=== PATIENT | female | born 1985 | race Caucasian/White ===

== ENCOUNTER → 2018-09-01 | Outpatient (CLI) | payer OTHER ==
--- NOTE | 2018-09-01 16:53 | RAD ---
Indication: Cyst of the ovary TECHNIQUE: Grayscale, color Doppler and spectral waveform is of the pelvis COMPARISON: None FINDINGS: The uterus is anteverted and measures 7.4 x 3.1 x 5.4 cm (longitudinal, AP, transverse). Endometrial stripe measures 2 mm in thickness and is within normal limits. The right ovary measures 3.0 x 2.2 x 1.7 cm and demonstrates evidence of blood flow. The left ovary measures 3.3 x 2.7 x 1.6 cm and shows blood flow. Cervix within normal limits. There is a 3.7 x 1.9 x 1.4 cm anechoic lesion posterior to the fundus of the uterus without internal vascularity. No free pelvic fluid. IMPRESSION: 1. Bilateral ovaries demonstrate evidence of blood flow 2. Cystic lesion posterior to the uterine fundus likely parapelvic cyst. Follow-up ultrasound in 8-12 weeks recommended. Electronically signed by: Nav Beck DO (09/01/2018 4:50 PM) [id number]
== END | disposition home or self-care (01) ==
LOC: US 13:30
PROVIDERS: ATTEND Obstetrics & Gynecology
DX: Z01.411 Encounter for gynecological examination (general) (routine) with abnormal findings (principal); N83.209 Unspecified ovarian cyst, unspecified side
CPT/HCPCS: 76830; 76856

== ENCOUNTER → 2018-10-26 | Outpatient (CLI) | payer OTHER ==
[~2018-10-26] MED LIST: DOCU-109 PO; GABA300C18 PO; IBUP-1027 PO
--- NOTE | 2018-10-26 12:51 | RAD ---
Pelvic and transvaginal ultrasound History: Left ovarian cyst Comparison: September 01, 2018 Findings: Multiple transabdominal sonographic images of the pelvis are submitted. Left ovary measures 2.7 x 1 x 2 cm. Right ovary is not well-visualized. Transvaginal ultrasound: Multiple transvaginal sonographic images of the pelvis are submitted. Uterus measured 8.4 x 4.1 x 5.1 cm. Endometrium is thin about 0.2 cm. Left ovary measured 3.4 x 1.7 x 2.5 cm. Previously seen cyst near the uterine fundus is not demonstrated. However there is a more solid-appearing focus of echogenicity of the left ovary about 2.1 x 2.2 x 1.5 cm with some internal vascularity on color Doppler imaging. There is normal low resistance vascularity of the left ovary. Right ovary measured 2.8 x 2.2 x 1.7 cm with normal low resistance vascularity, a few follicles present. No free fluid is demonstrated. Impression: 1. Not well-demonstrated on previous exam, there is more solid-appearing mass of the left ovary with internal vascularity on color Doppler imaging. Previously seen cystic focus near the uterine fundus is not demonstrated on this exam, no free fluid demonstrated. Electronically signed by: Jose Maria Weber MD (10/26/2018 12:47 PM) [id number]
== END | disposition home or self-care (01) ==
LOC: US 10:35
PROVIDERS: ATTEND Obstetrics & Gynecology
DX: N83.202 Unspecified ovarian cyst, left side (principal); N94.89 Other specified conditions associated with female genital organs and menstrual cycle
CPT/HCPCS: 76830; 76856

== ENCOUNTER 2019-01-04 07:59 | Inpatient (IN) | payer OTHER ==
[~2019-01-04] VITALS: Ht 149.9 cm; Wt 46.3 kg
[2019-01-04] VITALS (7 sets, daily range): BP systolic 94–106; BP diastolic 58–74
[~2019-01-04 07:59] MED LIST changes: -DOCU-109 PO; -GABA300C18 PO; +HYDROmorphone 2 MG/ML VIAL IV PRN; -IBUP-1027 PO; +IV RINGERS,LACTATED 1000ML 1,000 ML IV SCH; +MORPHINE SULFATE 2 MG/ML VIAL. IV PRN; +ONDANSETRON PF 4 MG/2 ML VIAL. IV PRN; +PROCHLORPERAZINE 10 MG/2 ML VIAL. IV PRN; +fentaNYL PF VIAL 100 MCG/2 ML VIAL IV PRN
[2019-01-04 08:20] LABS: U PREG PATIENT NEGATIVE (NEG)
[2019-01-04] MEDS ORDERED: SURGICEL HEMOSTAT 4X8 EACH. ONE (09:49)
[2019-01-04] MEDS ORDERED: BUPIVACAINE-EPI 0.25%-1:200000 MPF 30 ML VIAL. ONE (09:49)
[2019-01-04] MEDS ORDERED: ceFAZolin 2GM PREMIX 2 GM/50 ML BAG IV ONE (10:00)
[2019-01-04] MEDS ORDERED: fentaNYL PF VIAL 250 MCG/5 ML VIAL ONE (10:16)
[2019-01-04] MEDS ORDERED: MIDAZOLAM HCL/PF 2 MG/2 ML VIAL. ONE (10:21)
[2019-01-04] MEDS ORDERED: ROCURONIUM 50 MG/5 ML VIAL. ONE (10:21)
[2019-01-04] MEDS ORDERED: PROPOFOL 20 ML IV ONE (10:22)
[2019-01-04] MEDS ORDERED: LIDOCAINE 2% PF 5 ML VIAL. ONE (10:22)
[2019-01-04] MEDS ORDERED: DEXAMETHASONE SOD PHOS 20 MG/5 ML VIAL. ONE (10:22)
[2019-01-04] MEDS ORDERED: ONDANSETRON PF 4 MG/2 ML VIAL. ONE (10:22)
[2019-01-04] MEDS ORDERED: SEVOFLURANE 61 TO 120 MINUTES. IH ONE (10:22)
[2019-01-04] MEDS ORDERED: GLYCOPYRROLATE 1 MG/5 ML VIAL. ONE ×2 (10:31→13:01)
[2019-01-04] MEDS ORDERED: NEOSTIGMINE METHYLSULFATE 5 MG/5 ML SYRINGE. ONE ×2 (10:31→13:01)
--- NOTE | 2019-01-04 13:07 | PDOC4 ---
Operative Note Operative Note Operative Note: Preoperative Diagnosis: Intraoperative bowel injury, transverse colon Postoperative Diagnosis: Same Procedure: Repair of injury to transverse colon Surgeon: Edy Anesthesia: Gen EBL: Min Specimen: None Drains: None Complications: None Indication: The patient is a 33-year-old female who was undergoing a laparoscopic procedure by Dr. Rdz. Intraoperative general surgery consultation was requested out of concern regarding a trocar injury to the bowel. Description: Upon my entry the patient was under general anesthesia and in lithotomy. Dr. Rdz was present and the patient had a minilaparotomy located in the lower abdomen. Through the incision Dr. Rdz had isolated an area of the transverse colon that was a suspected site of injury. Per Dr Rdz's report there was a suspected injury with a laparoscopic trocar during which enteric contents were visualized consistent with colon. He did not believe that there was a through and through injury. Initial inspection of the transverse colon showed a small area of serosal disruption in the midportion. This did seem consistent with an injury from a 5 mm trocar, and there did not appear to be any significant contamination or soilage. I inspected the remainder of the transverse colon as far as could be visualized through the incision. There were no other areas of injury or abnormalities. We dissected some of the omentum off the area in question to inspect clearly around the bowel. Again there was no suggestion of the through and through injury. The suspected injury site was repaired with placement of 3-0 Vicryl sutures in the seromuscular layer. The bowel was then reduced back into the abdominal cavity. Dr. Rdz then closed the abdomen and concluded the case. SHREYAS WILSON MD Jan 04, 2019 13:07
--- NOTE | 2019-01-04 13:09 | PDOC ---
BRIEF OPERATIVE NOTE Date: Jan 04, 2019 Pre-Op Diagnosis MEHUL Cyst Post-Op Diagnosis Same Procedure Performed 1. Open LSO 2. Enterotomy Repair Surgeon Dr. Kendell Snow for enterotomy repair [employer] Supervisor Precious Anesthesia Type: General Blood Loss 100 ml Specimens Obtained Left fallopian tube and MEHUL Findings MEHUL cyst and incidental enterotomy Complications enterotomy Operative Note see dictation NATALIE COLEMAN Jr, MD Jan 04, 2019 13:09
[2019-01-04] MEDS ORDERED: PROCHLORPERAZINE 10 MG/2 ML VIAL. IV PRN (13:15)
[2019-01-04] MEDS ORDERED: DEXTROSE 50% 25 GM / 50ML DISP.SYRIN. IV PRN (13:15)
[2019-01-04] MEDS ORDERED: CALCIUM CARBONATE 500 MG TAB.CHEW PO PRN (13:15)
[2019-01-04] MEDS ORDERED: ONDANSETRON PF 4 MG/2 ML VIAL. IV PRN (13:15)
[2019-01-04] MEDS ORDERED: KETOROLAC 30 MG/ML VIAL. IV PRN (13:15)
[2019-01-04] MEDS ORDERED: diphenhydrAMINE HCL 25 MG CAPSULE PO PRN (13:15)
[2019-01-04] MEDS ORDERED: ZOLPIDEM 5 MG TABLET. PO PRN (13:15)
[2019-01-04] MEDS ORDERED: 0.9 % SODIUM CHLORIDE 10 ML DISP.SYRIN. IV PRN (13:15)
[2019-01-04] MEDS ORDERED: oxyCODONE/APAP 5/325 1 TAB TABLET PO PRN (13:15)
[2019-01-04] MEDS ORDERED: diphenhydrAMINE 50 MG/ML VIAL IV PRN (13:15)
[2019-01-04] MEDS ORDERED: SEVOFLURANE > 120 MINUTES. IH ONE (13:30)
--- NOTE | 2019-01-04 13:31 | OP ---
DATE OF SURGERY: 01/04/2019 PREOPERATIVE DIAGNOSIS: Left ovarian cyst. POSTOPERATIVE DIAGNOSIS: Left ovarian cyst. PROCEDURE: 1. Open LSO. 2. Enterotomy repair. SURGEON: Natalie Rdz MD. SECOND SURGEON: Dr. Snow for enterotomy repair. CLERK TELEVISION PRODUCTION: Precious. ANESTHESIA: GETA. ESTIMATED BLOOD LOSS: 100 mL. COMPLICATIONS: Enterotomy. FINDINGS: Left ovarian cyst and incidental enterotomy. SUMMARY: A 33-year-old female with chronic left ovarian cyst that showed solid and fluid components. The patient was counseled on laparoscopic LSO. Risks, benefits and expectations and voiced clear understanding to proceed. DESCRIPTION OF PROCEDURE: The patient was taken to surgery suite, placed in dorsal lithotomy position. She was prepped with Betadine solution for vaginal prep and ChloraPrep for abdominal prep. After adequate anesthesia, bivalve speculum was placed vaginally. Anterior lip of the cervix was grasped with single tooth tenaculum. The uterine acorn manipulator was then placed. The bivalve speculum was removed. Attention was now placed on abdomen. Small transverse skin incision was made with scalpel just below the umbilicus. The Veress needle was then placed through the infraumbilical incision site. The abdomen was insufflated up to 1 liter of CO2 gas. Veress needle was then removed. A 5-mm trocar was placed. Scope was positioned. It was found to be in the colon in which there was solid stool visualized. We then proceeded for open procedure. The trocar was removed. A low transverse Pfannenstiel skin incision was made with scalpel down to and through the fascia. The fascia was extended laterally using curved Andrews scissors. The superior edge of the fascia was grasped with 2 Mai clamps, dissected free of the abdominal rectus muscles using blunt dissection along with Bovie cautery. Same process took place inferiorly. The abdominal rectus muscles were dissected bluntly at the midline. Peritoneum was grasped with 2 hemostats and entered sharply with Metzenbaum scissors. This incision was extended superiorly. The bowel was then ran and we visualized the incidental enterotomy and marked it with a 2-0 Vicryl suture. The Tenzin ring retractor was placed. The uterus was then manipulated to visualize the right fallopian tube and ovary that was normal, left fallopian tube and ovary that was visualized. A curved Chloé clamp was placed over the left infundibulopelvic ligament, which was clamped, cut, and suture ligated. The left utero-ovarian pedicle was clamped with curved Chloé clamp, cut, and suture ligated. The area was hemostatic. The uterus was then returned to the abdomen. Dr. Snow was called for evaluation and repair of the enterotomy. Once he arrived, the bowel was visualized and appeared to be at the site of the marking in which he repaired the enterotomy with interrupted 3-0 Vicryl sutures. The bowel was then returned to the abdomen. The Tenzin ring retractor was removed. The peritoneum was reapproximated using 1-0 Vicryl suture in running fashion. The fascia was then reapproximated using 0 Vicryl suture in running fashion. Skin was reapproximated using 4-0 Vicryl suture in subcuticular manner. The infraumbilical incision site was closed with 4-0 Vicryl suture in a subcuticular manner. The uterine acorn manipulator and single tooth tenaculum were removed. The patient tolerated the procedure well and was sent to recovery room in stable condition. Sponge and needle count correct x 3. Please see Dr. Snow's dictation for the enterotomy repair. NATALIE RDZ MD DR: DANETTE/carlos JOB#: [id number] / [id number]
[2019-01-04] MEDS: fentaNYL PF VIAL 100 MCG/2 ML VIAL IV PRN ×3 (13:52→15:08)
[2019-01-04] MEDS ORDERED: fentaNYL PF VIAL 100 MCG/2 ML VIAL ONE (13:54)
[2019-01-04] MEDS: GABAPENTIN 300 MG CAPSULE. PO SCH ×2 (14:00→22:00)
[2019-01-05 05:40] VITALS: BP 99/68
[2019-01-05 06:11] LABS: BASO % 0 % (0-3); EOS % 0 % (0-3); HEMATOCRIT 34.6 % (36.0-47.0); HEMOGLOBIN 11.4 g/dL (12.0-15.5); LYMPH # 2.3 x10^3/uL (1.0-4.8); LYMPH % 18 % (24-48); MEAN CORPUSCULAR HEMOGLOBIN 29 pg (25-35); MEAN CORPUSCULAR HGB CONC 33 g/dL (31-37); MEAN CORPUSCULAR VOLUME 88 fL (79-100); MONO # 1.1 x10^3/uL (0.0-1.1); MONO % 8 % (0-9); NEUT # 9.5 x10^3uL (1.8-7.7); NEUT % 74 % (31-73); PLATELET COUNT 180 x10^3/uL (140-400); RED BLOOD COUNT 3.93 x10^6/uL (3.50-5.40); RED CELL DISTRIBUTION WIDTH 13.3 % (11.5-14.5); WHITE BLOOD COUNT 12.9 x10^3/uL (4.0-11.0)
[2019-01-05 08:20] VITALS: BP 103/60
--- NOTE | 2019-01-05 08:39 | PDOC ---
SURGICAL PROGRESS NOTE Subjective Pt. feeling well. No c/o CP, SOB or abd pain. Pt. ambulating in room. Vital Signs Vital Signs Date Time Temp Pulse Resp B/P (MAP) Pulse Ox O2 Delivery O2 Flow Rate FiO2 01/05/19 05:40 97.9 65 16 99/68 (78) 97 Room Air 97.9 01/04/19 13:52 10.0 I&O Intake and Output 01/05/19 06:59 Intake Total 3110 ml Output Total 1850 ml Balance 1260 ml Intake Oral 90 ml IV Total 2000 ml Other 1020 ml Output Urine Total 1750 ml Estimated Blood Loss 100 ml # Voids 3 PATIENT HAS A CIFUENTES: No General: Alert, Oriented X3, Cooperative HEENT: Atraumatic Lungs: Clear to auscultation Heart: Regular rate Abdomen: Soft, No masses, Other (mild tenderness.) Extremities: No edema Psych/Mental Status: Mental status NL Labs Laboratory Tests Test 01/04/19 08:10 01/05/19 05:10 Urine Test Negative (NEG) White Blood Count 12.9 x10^3/uL (4.0-11.0) Red Blood Count 3.93 x10^6/uL (3.50-5.40) Hemoglobin 11.4 g/dL (12.0-15.5) Hematocrit 34.6 % (36.0-47.0) Mean Corpuscular Volume 88 fL (79-100) Mean Corpuscular Hemoglobin 29 pg (25-35) Mean Corpuscular Hemoglobin Concent 33 g/dL (31-37) Red Cell Distribution Width 13.3 % (11.5-14.5) Platelet Count 180 x10^3/uL (140-400) Neutrophils (%) (Auto) 74 % (31-73) Lymphocytes (%) (Auto) 18 % (24-48) Monocytes (%) (Auto) 8 % (0-9) Eosinophils (%) (Auto) 0 % (0-3) Basophils (%) (Auto) 0 % (0-3) Neutrophils # (Auto) 9.5 x10^3uL (1.8-7.7) Lymphocytes # (Auto) 2.3 x10^3/uL (1.0-4.8) Monocytes # (Auto) 1.1 x10^3/uL (0.0-1.1) Eosinophils # (Auto) 0.0 x10^3/uL (0.0-0.7) Basophils # (Auto) 0.0 x10^3/uL (0.0-0.2) Laboratory Tests Test 01/05/19 05:10 White Blood Count 12.9 x10^3/uL (4.0-11.0) Red Blood Count 3.93 x10^6/uL (3.50-5.40) Hemoglobin 11.4 g/dL (12.0-15.5) Hematocrit 34.6 % (36.0-47.0) Mean Corpuscular Volume 88 fL (79-100) Mean Corpuscular Hemoglobin 29 pg (25-35) Mean Corpuscular Hemoglobin Concent 33 g/dL (31-37) Red Cell Distribution Width 13.3 % (11.5-14.5) Platelet Count 180 x10^3/uL (140-400) Neutrophils (%) (Auto) 74 % (31-73) Lymphocytes (%) (Auto) 18 % (24-48) Monocytes (%) (Auto) 8 % (0-9) Eosinophils (%) (Auto) 0 % (0-3) Basophils (%) (Auto) 0 % (0-3) Neutrophils # (Auto) 9.5 x10^3uL (1.8-7.7) Lymphocytes # (Auto) 2.3 x10^3/uL (1.0-4.8) Monocytes # (Auto) 1.1 x10^3/uL (0.0-1.1) Eosinophils # (Auto) 0.0 x10^3/uL (0.0-0.7) Basophils # (Auto) 0.0 x10^3/uL (0.0-0.2) Assessment/Plan A: POD#1 s/p Open LSO and Enterotomy repair P: If normal bowel sounds, then advance diet as tolerated and start PO pain meds. Continue post op care. NATALIE COLEMAN Jr, MD Jan 05, 2019 08:39
[2019-01-05] MEDS ORDERED: oxyCODONE/APAP 5/325 1 TAB TABLET PO PRN (08:45)
[2019-01-05] MEDS ORDERED: SIMETHICONE 80 MG TAB.CHEW PO PRN (10:45)
[2019-01-05] MEDS: SIMETHICONE 80 MG TAB.CHEW PO PRN ×2 (10:52→16:24)
[2019-01-05] MEDS: IBUPROFEN 400 MG TABLET. PO PRN (15:00)
[2019-01-05 15:34] VITALS: BP 102/63
[2019-01-05 20:19] VITALS: BP 95/57
[2019-01-06] MEDS: IBUPROFEN 400 MG TABLET. PO PRN ×3 (00:55→13:43)
[2019-01-06] MEDS: GABAPENTIN 300 MG CAPSULE. PO SCH ×2 (06:27→13:43)
[2019-01-06 06:50] VITALS: BP 95/57
[2019-01-06 10:30] VITALS: BP 101/64
--- NOTE | 2019-01-06 16:15 | PDOC ---
SURGICAL PROGRESS NOTE Subjective Pt. feeling well. She is tolerating regular diet, ambulating, voiding and passing flatus. Vital Signs Vital Signs Date Time Temp Pulse Resp B/P (MAP) Pulse Ox O2 Delivery O2 Flow Rate FiO2 01/06/19 10:30 98.0 64 18 101/64 (76) 99 98.0 01/06/19 06:50 Room Air I&O Intake and Output 01/06/19 07:00 Intake Total 240 ml Output Total 2500 ml Balance -2260 ml Intake Oral 240 ml Output Urine Total 2500 ml # Voids 4 PATIENT HAS A CIFUENTES: No General: Alert, Oriented X3, Cooperative HEENT: Atraumatic Lungs: Clear to auscultation Heart: Regular rate Abdomen: Normal bowel sounds, Soft, No tenderness, No masses, Other (Incision site: clean,dry and intact) Psych/Mental Status: Mental status NL Labs Laboratory Tests Test 01/05/19 05:10 White Blood Count 12.9 x10^3/uL (4.0-11.0) Red Blood Count 3.93 x10^6/uL (3.50-5.40) Hemoglobin 11.4 g/dL (12.0-15.5) Hematocrit 34.6 % (36.0-47.0) Mean Corpuscular Volume 88 fL (79-100) Mean Corpuscular Hemoglobin 29 pg (25-35) Mean Corpuscular Hemoglobin Concent 33 g/dL (31-37) Red Cell Distribution Width 13.3 % (11.5-14.5) Platelet Count 180 x10^3/uL (140-400) Neutrophils (%) (Auto) 74 % (31-73) Lymphocytes (%) (Auto) 18 % (24-48) Monocytes (%) (Auto) 8 % (0-9) Eosinophils (%) (Auto) 0 % (0-3) Basophils (%) (Auto) 0 % (0-3) Neutrophils # (Auto) 9.5 x10^3uL (1.8-7.7) Lymphocytes # (Auto) 2.3 x10^3/uL (1.0-4.8) Monocytes # (Auto) 1.1 x10^3/uL (0.0-1.1) Eosinophils # (Auto) 0.0 x10^3/uL (0.0-0.7) Basophils # (Auto) 0.0 x10^3/uL (0.0-0.2) Assessment/Plan POD#2 s/p Open LSO and Enterotomy repair P: D/c home. NATALIE COLEMAN Jr, MD Jan 06, 2019 16:15
--- NOTE | 2019-01-06 16:17 | DISCH ---
DISCHARGE INSTRUCTIONS Condition on Discharge Condition on Discharge: Stable Activity After Discharge Activity Instructions for Disc: Activity as tolerated Lifting Instructions after Dis: No heavy lifting Driving Instructions after Dis: No driving for 2 weeks Diet after Discharge Diet after Discharge: Regular Contacting the DRPedro after DC Call your doctor for: Concerns you may have Follow-Up Follow up with: Dr. Rdz in 1 week. NATALIE RDZ Jr, MD Jan 06, 2019 16:17
[2019-01-06] MEDS ORDERED: IBUP-1027 PO (16:19)
[2019-01-06] MEDS ORDERED: GABA300C18 PO (16:19)
[2019-01-06] MEDS ORDERED: DOCU-109 PO (16:19)
--- NOTE | 2019-01-06 16:42 | NUR ---
home instructions gone over with pt and signed to see dr quick in 1 week. instructed no heavy lifting pain meds x 2 scripts given along with stool softener. all questions answered on home care
[2019-01-06 16:44] VITALS: BP 96/66
--- NOTE | 2019-01-08 09:06 | PATHOLOGY ---
[facility] Accession Number: [id number] . 01 Material submitted: . LEFT FALLOPIAN TUBE AND LEFT OVARY . 01 Clinical history: . Left ovarian cyst . 02 Diagnosis: Fallopian tube and ovary, left salpingo-oophorectomy: - Cystic follicles of ovary, several. - Fallopian tube showing no diagnostic abnormalities. (JPM/db; 01/05/2019) LBQ/01/05/2019 . 02 Comment: There is no atypia or evidence of malignancy. . 02 Electronically signed: . Zoran Webber MD, Pathologist NPI- [id number] . 01 Gross description: . The specimen is received in formalin, labeled "Marcia Isabella, left fallopian tube and left ovary", is a tubo-ovarian complex weighing 7 g with a alaniz-white, indurated ovary measuring 3.0 x 1.7 x 1.2 cm and the overlying, fimbriated fallopian tube measuring 7.7 cm in length with an average 0.3 cm diameter. The external surface of ovary is inked black. Sectioning of the ovary reveals several cysts filled with clear serous fluid and corpus luteum and corpora albicans. The fallopian tube serosa is alaniz-pink and glistening and the lumen is well-defined. . [employer] tissue is submitted as follows: A1. Ovary A2. Fallopian tube ([facility]; 01/04/2019) SHS/SHS . 02 Pathologist provided ICD-10: N83.292 . 02 CPT . 605096 Specimen Comment: A courtesy copy of this report has been sent to Specimen Comment: [phone]. Specimen Comment: Report sent to Performed at: [address], [place], [place] [id number] MD Babar Cadet MD Phone: [phone] Performed at: [address] [id number] MD Zoran Webber MD Phone: [phone]
--- NOTE | 2019-01-30 01:02 | DS ---
DATE OF DISCHARGE: 01/06/2019 ADMITTING DIAGNOSES: Left ovarian complex cyst and pelvic pain. DISCHARGE DIAGNOSES: Left ovarian complex cyst and pelvic pain plus incidental enterotomy. SURGEON: Natalie Rdz M.D. CONSULTING PHYSICIAN: Nain Snow M.D. PROCEDURES: 1. Open mini laparotomy for left salpingo-oophorectomy. 2. Enterotomy repair by Dr. Snow. HOSPITAL COURSE: The patient underwent laparoscopic surgery for left salpingo-oophorectomy. During the laparoscopic portion, there was a bowel injury in which she was converted to open laparotomy in which the injured bowel was repaired by Dr. Snow. The patient did undergo a left salpingo-oophorectomy. She recovered well and went home postop day #2 in good condition. DIET: Regular diet. FOLLOWUP: The patient is to follow up in clinic in 1 week. NATALIE RDZ MD DR: DANETTE/carlos JOB#: [id number] / [id number]
== END 2019-01-06 16:51 | disposition home or self-care (01) | DRG 743 ==
LOC: SURG 07:59 → OBSVTOIN 13:09 → INTOOBSV 13:09 → 3 NORTH 13:09 → OBSVTOIN 13:21
PROVIDERS: ADMIT Obstetrics & Gynecology; ATTEND Obstetrics & Gynecology
PROC: 0DJW4ZZ Inspection of Peritoneum, Percutaneous Endoscopic Approach (ICD-10-PCS; 2019-01-04)
PROC: 0UT10ZZ Resection of Left Ovary, Open Approach (ICD-10-PCS; 2019-01-04)
PROC: 0DQL0ZZ Repair Transverse Colon, Open Approach (ICD-10-PCS; 2019-01-04)
PROC: 0UT60ZZ Resection of Left Fallopian Tube, Open Approach (ICD-10-PCS; principal; 2019-01-04 10:30)
DX: N83.202 Unspecified ovarian cyst, left side (principal); Z53.31 Laparoscopic surgical procedure converted to open procedure
CPT/HCPCS: 36415; 81025; 85025; 88305; A7015; C1782; G0379; J0696; J1100; J1885; J2001; J2250; J2405; J2704; J2710; J3010; J3490; J7030; J7120